=== PATIENT | male | born 1945 | race Caucasian/White ===

== ENCOUNTER 2016-11-29 12:54 | Emergency (ER) | payer MEDICARE ==
[2016-11-29 13:10] VITALS: BP 125/65
--- NOTE | 2016-11-29 13:22 | UC ---
Laceration HPI - HPI Summary HPI Summary: compalint of left ring finger lacertion was using a hand held planer and hit his finger cleaned his finger and wrapped in a pressure dressing unsure if he is UTD on tetanus hasn't taken any medication for pain - History Of Current Complaint Chief Complaint: UCLaceration Stated Complaint: LEFT RING FINGER LACERATION Time Seen by Provider: 11/29/16 13:05 Laceration Location: Finger - Allergies/Home Medications Allergies/Adverse Reactions: Allergies Allergy/AdvReac Type Severity Reaction Status Date / Time Nalbuphine [From Nubain] Allergy Severe See Comment Verified 11/29/16 13:10 PMH/Surg Hx/FS Hx/Imm Hx Previously Healthy: Yes Endocrine History: Dyslipidemia Cardiovascular History: Hypertension GI/ History: Gastroesophageal Reflux Psychological History: Depression - Surgical History Surgical History: Yes Surgery Procedure, Year, and Place: [place], hernia repair. bilateral knee replacement. cardiac stent placement - Family History Known Family History: Negative: Cardiac Disease, Hypertension, Diabetes - Social History Occupation: Retired Lives: With Family Alcohol Use: Weekly Alcohol Amount: 5 Substance Use Type: None Smoking Status (MU): Former Smoker Have You Smoked in the Last Year: No When Did the Patient Quit Smoking/Using Tobacco: 45 years ago - Immunization History Most Recent Tetanus Shot: unknown Review of Systems Constitutional: Negative Skin: Other - laceration Eyes: Negative ENT: Negative Respiratory: Negative Cardiovascular: Negative Gastrointestinal: Negative Genitourinary: Negative Motor: Negative Neurovascular: Negative Musculoskeletal: Negative Neurological: Negative Psychological: Negative All Other Systems Reviewed And Are Negative: Yes Physical Exam Triage Information Reviewed: Yes Appearance: No Pain Distress, Well-Nourished Vital Signs: Initial Vital Signs Temp 98.1 F 11/29/16 13:03 Pulse 60 11/29/16 13:03 Resp 18 11/29/16 13:03 BP 125/65 11/29/16 13:03 Vital Signs Reviewed: Yes Eyes: Positive: Conjunctiva Clear ENT: Positive: Pharynx normal, TMs normal Neck: Positive: No Lymphadenopathy Respiratory: Positive: Lungs clear, Normal breath sounds, No respiratory distress Cardiovascular: Positive: RRR, No Murmur Musculoskeletal: Positive: No Edema Neurological: Positive: Alert Psychological Exam: Normal Skin: Positive: Other - left ring finger - avulsion injury to pad of finger Laceration Repair - Laceration Repair 1 Description: Irregular Laceration Size After Repair: Length (cm) - 1, Width (mm) - 5, Depth (mm) - 2 Modified For Repair: No Cleansing Completed Via Routine Prep: Yes Irrigation With Pressure Irrigation Device: Yes Closure Material: SteriStrips Suture Type: Other - gel foam Laceration Course/Dx - Differential Dx - Laceration/Wound Differental Diagnoses: Avulsion, Laceration Provider Diagnoses: lefr ring finger avulsion injury Discharge - Discharge Plan Condition: Stable Disposition: HOME Patient Education Materials: Skin Avulsion (ED) Referrals: Escobar Biggs MD [Primary Care Provider] - Additional Instructions: keep your finger clean and dry keep gelfoam in place until it falls off, you can change the outer dressing daily and wear finger splint seek medical attention if your finger gets more painful, rede or swollen or you develop a fever Take acetaminophen or ibuprofen for fever or pain Please review your discharge instructions. If your symptoms do not improve please call your primary care provider or return to urgent care.
[2016-11-29] MEDS ORDERED: Gelfoam 100 COMPRESSED* SPONGE TOPICAL ONE (13:25)
[2016-11-29] MEDS ORDERED: Tetan/Diph/Pertus SYR(Tdap)* 0.5 ML SYR(BOOSTRIX) use SYR IM ONE (13:45)
[2016-11-29] MEDS ORDERED: Gelfoam 12-7 ADSORBABL SPONGE* 1 EA SPONGE ONE (13:49)
== END 2016-11-29 14:10 | disposition home or self-care (01) ==
LOC: UCCORT 12:54
DX: S61.215A Laceration without foreign body of left ring finger without damage to nail, initial encounter (principal); W27.8XXA Contact with other nonpowered hand tool, initial encounter; Y93.9 Activity, unspecified; Y92.9 Unspecified place or not applicable; Z23 Encounter for immunization; E78.5 Hyperlipidemia, unspecified; I10 Essential (primary) hypertension; K21.9 Gastro-esophageal reflux disease without esophagitis; F32.9 Major depressive disorder, single episode, unspecified; Z96.653 Presence of artificial knee joint, bilateral; Z95.5 Presence of coronary angioplasty implant and graft; Z87.891 Personal history of nicotine dependence
CPT/HCPCS: 90715; 99212; A9270-GY; G0463

== ENCOUNTER 2017-01-02 16:55 | Emergency (ER) | payer MEDICARE ==
[2017-01-02 18:14] VITALS: BP 122/67
--- NOTE | 2017-01-02 18:49 | UC ---
Skin Complaint HPI - HPI Summary HPI Summary: LEFT FOREARM SMALL NONTENDER NONPRURITIS CIRCULAR RASH. NO KNOWN TICK BITES. NO FEVERS. NO NEW EXPOSURES TO PLANTS, DETERGENTS, PETS, OR FOODS. - History of Current Complaint Chief Complaint: UCSkin Time Seen by Provider: 01/02/17 17:53 Stated Complaint: TICK BITE Hx Obtained From: Patient Onset/Duration: Sudden Onset, Lasting Days Skin Exposure Onset/Duration: Days Ago Onset Severity: Mild Current Severity: Mild Pain Intensity: 0 Pain Scale Used: 0-10 Numeric Location: Discrete - LEFT FOREARM Character: Redness Aggravating: Nothing Alleviating: Nothing Associated Signs & Symptoms: Positive: Rash. Negative: Nausea, Vomiting, Pallor , Shivering, Fever, Chills, Chest Pain, Hoarseness, Throat Tightening, Syncope, Drainage, Tenderness, Red Streaks, Joint Swelling Related History: Possible Reaction to: Food, Possible Reaction to: Animal, Possible Reaction to: Insect, Possible Reaction to: Environmental Exposure - Allergy/Home Medications Allergies/Adverse Reactions: Allergies Allergy/AdvReac Type Severity Reaction Status Date / Time Nalbuphine [From Nubain] Allergy Severe See Comment Verified 11/29/16 13:10 Review of Systems Constitutional: Negative Skin: Rash Eyes: Negative ENT: Negative Respiratory: Negative Cardiovascular: Negative Gastrointestinal: Negative Genitourinary: Negative Motor: Negative Neurovascular: Negative Musculoskeletal: Negative Neurological: Negative Psychological: Negative Is Patient Immunocompromised?: No All Other Systems Reviewed And Are Negative: Yes PMH/Surg Hx/FS Hx/Imm Hx Previously Healthy: Yes - Surgical History Surgical History: Yes Surgery Procedure, Year, and Place: Appy, hernia repair. bilateral knee replacement. cardiac stent placement - Family History Known Family History: Negative: Cardiac Disease, Hypertension, Diabetes - Social History Occupation: Retired Lives: With Family Alcohol Use: Weekly Alcohol Amount: 5 Substance Use Type: None Smoking Status (MU): Former Smoker Have You Smoked in the Last Year: No When Did the Patient Quit Smoking/Using Tobacco: 45 years ago - Immunization History Most Recent Influenza Vaccination: Not the 2016/2017 Season Most Recent Tetanus Shot: 11/29/16 Physical Exam Triage Information Reviewed: Yes Appearance: Well-Appearing, No Pain Distress, Well-Nourished Vital Signs: Initial Vital Signs Temp 98.1 F 01/02/17 18:08 Pulse 60 01/02/17 18:08 Resp 16 01/02/17 18:08 BP 122/67 01/02/17 18:08 Pulse Ox 95 01/02/17 18:08 Vital Signs Reviewed: Yes Eye Exam: Normal ENT Exam: Normal ENT: Positive: Normal ENT inspection, Hearing grossly normal, TMs normal Dental Exam: Normal Neck exam: Normal Neck: Positive: Supple, Nontender Respiratory Exam: Normal Respiratory: Positive: Chest non-tender, Lungs clear, Normal breath sounds, No respiratory distress, No accessory muscle use Cardiovascular Exam: Normal Cardiovascular: Positive: RRR, No Murmur Abdominal Exam: Normal Abdomen Description: Positive: Nontender Musculoskeletal Exam: Normal Musculoskeletal: Positive: Strength Intact Neurological Exam: Normal Psychological Exam: Normal Skin: Positive: rashes Course/Dx - Differential Diagnoses - Skin Complaint Differential Diagnoses: Cellulitis, Contact Dermatitis, Drug Rash, MRSA, Poison Micki, Poison Truchas, Tick Born Illness, Tinea - Diagnoses Provider Diagnoses: TINEA CORPORIS Discharge - Discharge Plan Condition: Stable Disposition: HOME Prescriptions: DOXYcycline CAP(*) [DOXYcycline 100MG CAP(*)] 100 mg PO ONCE #2 cap Ketoconazole 2 % CREAM (NF) [Nizoral 2% CREAM (NF)] 1 applic TOPICAL TID #1 tube Patient Education Materials: Tinea Corporis (ED) Referrals: Escobar Biggs MD [Primary Care Provider] - Images Front/Back of Body, Lg ([place]): 1 - SMALL CIRCULAR MACULAR 0.5CM X0.5CM LESION
== END 2017-01-02 18:41 | disposition home or self-care (01) ==
LOC: UCCORT 16:55
DX: B35.4 Tinea corporis (principal); Z87.891 Personal history of nicotine dependence
CPT/HCPCS: 99212; G0463

== ENCOUNTER → 2018-04-21 10:15 | Day surgery (SDC) | payer MEDICARE ==
[~2018-04-21 10:15] MED LIST: Buffered Lidocaine 0.9% SYRIN* 5 ML/SYR SYRINGE INTRADERM ONE; Bupivacaine 0.25% SDV PF* 10 ML VIAL INJ ONE; Dexamethasone IV* 4 MG/ML 1 ML (4 MG) ONE; Famotidine IV* 10 MG/ML 2 ML (20 mg) IV ONE; Famotidine IV* 10 MG/ML 2 ML (20 mg) ONE; Lactated Ringers 1000 ML Bag* 1,000 ML IV SCH; Lidocaine 2% PF * 5 ML VIAL ONE; Midazolam* 1 MG/ML 5 ML VIAL (5 MG) ONE; Ondansetron INJ* 2 MG/ML VIAL ONE; Propofol* 10 MG/ML 20 ML BTL ONE; fentaNYL* 50 MCG/ML 2 ML VIAL (100 MCG VIAL) ONE
[2018-04-21 14:58] VITALS: BP 133/84
--- NOTE | 2018-04-21 23:58 | OP ---
DATE OF OPERATION: 04/21/18 - [facility] DATE OF : 47 SURGEON: Jayson Roberts MD PRE-OP DIAGNOSIS: Gastric cancer. POST-OP DIAGNOSIS: Gastric cancer. OPERATIVE PROCEDURE: Placement of right subclavian approach PowerPort. INDICATIONS: Requiring central venous access for chemotherapy. Risks of surgery included but not limited to bleeding, infection, pneumothorax, injury to the heart, DVT, all explained to the patient. He seemed to understand. He agreed to the procedure and all questions were answered. DESCRIPTION OF PROCEDURE: The patient was taken to the operating room, placed supine, preoperative antibiotics had been given. Time-out was performed, correct patient and correct procedure. The chest was prepped and draped in sterile fashion. Sedation was given by the anesthesiologist. He was placed in a Trendelenburg position. The left subclavian space was not used due to pacemaker. The right chest had been prepped and draped in a sterile fashion. Skin was anesthetized with 0.25% Marcaine plain. The needle was placed in the subclavian vein and the wire was passed through the needle using Seldinger technique. The needle was removed. The tract was dilated and a split sheath was passed over the wire, the wire was removed. The PowerPort catheter was passed through the split sheath and the spit sheath was removed. Pocket was made below this entry site and the catheter was tunneled under the skin to this pocket. The catheter was connected to a PowerPort after fluoroscopy showed catheter in good position. Fluoroscopy had been used to shield the wire in good position as well. Port was checked by aspirating blood and then flushing with heparinized saline. The pocket was closed with a running two-layer Monocryl suture. Glue was applied to the skin. He tolerated the procedure well. [id number]/CPS #: [id number] MTDD
== END | disposition home or self-care (01) ==
LOC: OR 10:15
PROVIDERS: ATTEND Surgery
DX: C16.9 Malignant neoplasm of stomach, unspecified (principal); I10 Essential (primary) hypertension; Z95.0 Presence of cardiac pacemaker; G47.33 Obstructive sleep apnea (adult) (pediatric); K21.9 Gastro-esophageal reflux disease without esophagitis; M19.90 Unspecified osteoarthritis, unspecified site; D64.9 Anemia, unspecified; Z95.5 Presence of coronary angioplasty implant and graft; I25.10 Atherosclerotic heart disease of native coronary artery without angina pectoris; I25.2 Old myocardial infarction
CPT/HCPCS: 71045; 76000; C1788; J1100; J1642; J2250; J2405; J2704; J3010; J3490

== ENCOUNTER → 2018-08-15 11:55 | Emergency (ER) | payer MEDICARE ==
--- NOTE | 2018-08-15 14:33 | ED ---
Abdominal Pain/Male - HPI Summary HPI Summary: Pt is a 72 y/o M presenting to the ED with a chief complaint of abd pain onset about 1wk ago in the periumbilical area. He c/o fatigue, and states that the abd pain is usually somewhat alleviated with bowel movements, but nothing makes it worse. He has hx of esophageal CA that he has been in treatment for, and takes medical marijuana for. The pt states he took an Oxycodone originally but it made him nauseous, so he has mostly been taking Tylenol ES. He was advised by Dr. Roach to come here today. - History of Current Complaint Chief Complaint: EDAbdPain Stated Complaint: STOMACH PAIN/ON CHEMO PER PT Time Seen by Provider: 08/15/18 13:34 Hx Obtained From: Patient, Family/Literature Teacher - Onset/Duration: Sudden Onset, Lasting Weeks, Still Present Timing: Constant, Lasting Weeks Severity Initially: Moderate Severity Currently: Mild Pain Intensity: 2 Pain Scale Used: 0-10 Numeric Location: Umbilical Radiates: No Character: Cramping Aggravating Factor(s): Nothing Alleviating Factor(s): Bowel Movement Associated Signs And Symptoms: Positive: Other - fatigue - Allergies/Home Medications Allergies/Adverse Reactions: Allergies Allergy/AdvReac Type Severity Reaction Status Date / Time nalbuphine [From Nubain] Allergy Severe See Comment Verified 08/15/18 12:06 PACEMAKER AdvReac See Comment Uncoded 07/02/18 12:05 Home Medications: Home Medications Aspirin EC TAB* [Ecotrin EC Low Dose 81 MG*] 81 mg PO DAILY 08/15/18 [History Confirmed 08/15/18] Fluconazole [Fluconazole 200 mg tab] 200 mg PO SEE INSTRUCTIONS 08/15/18 [ History Confirmed 08/15/18] Magnesium CITRATE* [Citrate of Magnesia*] 8 ml PO ONCE PRN 08/15/18 [History Confirmed 08/15/18] Nystatin SUSPENSION* 5 ml PO TID 08/15/18 [History Confirmed 08/15/18] Ondansetron TAB* [Zofran 4 MG Tab*] 4 mg PO TID PRN 08/15/18 [History Confirmed 08/15/18] Prochlorperazine TAB* [Compazine Tab*] 10 mg PO QID PRN 08/15/18 [History Confirmed 08/15/18] Sildenafil (NF) [Viagra (NF)] 50 mg PO DAILY PRN 08/15/18 [History Confirmed ] Sucralfate SUSP (NF) [Carafate SUSP (NF)] 10 ml PO QID 08/15/18 [History Confirmed 08/15/18] Ubidecarenone [Co Q10] 200 mg PO BEDTIME 08/15/18 [History Confirmed 08/15/18] PMH/Surg Hx/FS Hx/Imm Hx Previously Healthy: No Endocrine/Hematology History: Denies: Hx Diabetes Cardiovascular History: Reports: Hx Hypertension - CONTROLLED WITH MEDS, Hx Pacemaker/ICD - 2008 replaced 2017 Denies: Other Cardiovascular Problems/Disorders Respiratory History: Reports: Hx Sleep Apnea Denies: Hx Asthma, Hx Chronic Obstructive Pulmonary Disease (COPD) GI History: Reports: Hx Gastroesophageal Reflux Disease, Hx Irritable Bowel, Hx Ulcer - GASTRIC IN THE PAST History: Denies: Hx Renal Disease Musculoskeletal History: Reports: Hx Arthritis - GENERALZIED Sensory History: Reports: Hx Cataracts, Hx Contacts or Glasses - GLASSES Denies: Hx Hearing Aid Opthamlomology History: Reports: Hx Cataracts, Hx Contacts or Glasses - GLASSES - Cancer History Cancer Type, Location and Year: metastatic stomach ca - Surgical History Surgery Procedure, Year, and Place: Appendectomy, Left inguinal hernia repair. bilateral knee replacement. cardiac stent placement. PACEMAKER Hx Anesthesia Reactions: No Infectious Disease History: No Infectious Disease History: Denies: Traveled Outside the [place] in Last 30 Days - Family History Known Family History: Negative: Cardiac Disease, Hypertension, Diabetes - Social History Alcohol Use: Weekly Alcohol Amount: 5 Hx Substance Use: Yes Substance Use Type: Reports: Marijuana, Prescribed Hx Tobacco Use: No Smoking Status (MU): Former Smoker Have You Smoked in the Last Year: No Review of Systems Positive: Fatigue Positive: Abdominal Pain All Other Systems Reviewed And Are Negative: Yes Physical Exam - Summary Physical Exam Summary: Appearance: The patient is well-nourished in no acute distress and in no acute pain. Skin: The skin is warm and dry and skin color reflects adequate perfusion. HEENT: The head is normocephalic and atraumatic. The pupils are equal and reactive. The conjunctivae are clear and without drainage. Nares are patent and without drainage. Mouth reveals moist mucous membranes and the throat is without erythema and exudate. The external ears are intact. The ear canals are patent and without drainage. The tympanic membranes are intact. Neck: The neck is supple with full range of motion and non-tender. There are no carotid bruits. There is no neck vein distension. Respiratory: Chest is non-tender. Lungs are clear to auscultation and breath sounds are symmetrical and equal. Cardiovascular: Heart is regular rate and rhythm. There is no murmur or rub auscultated. There is no peripheral edema and pulses are symmetrical and equal. Abdomen: The abdomen is soft and non-tender. There are normal bowel sounds heard in all four quadrants and there is no organomegaly palpated. Musculoskeletal: There is no back tenderness noted. Extremities are non-tender with full range of motion. There is good capillary refill. There is no peripheral edema or calf tenderness elicited. Neurological: Patient is alert and oriented to person, place and time. The patient has symmetrical motor strength in all four extremities. Cranial nerves are grossly intact. Deep tendon reflexes are symmetrical and equal in all four extremities. Psychiatric: The patient has an appropriate affect and does not exhibit any anxiety or depression. Triage Information Reviewed: Yes Vital Signs On Initial Exam: Initial Vitals Temp Pulse Resp BP Pulse Ox 97.6 F 59 18 118/74 96 08/15/18 12:01 08/15/18 12:01 08/15/18 12:01 08/15/18 12:01 08/15/18 12:01 Vital Signs Reviewed: Yes Diagnostics - Vital Signs Vital Signs Temp Pulse Resp BP Pulse Ox 08/15/18 13:33 60 17 105/80 94 08/15/18 13:32 60 21 94 08/15/18 12:01 97.6 F 59 18 118/74 96 - Laboratory Result Diagrams: 08/15/18 14:34 08/15/18 14:37 Lab Statement: Any lab studies that have been ordered have been reviewed, and results considered in the medical decision making process. Abdominal Pain Male Course/Dx - Course Course Of Treatment: Mr. Hicks has been having a lower abdominal pain for about a week. He tried taking oxycodone but it made him nauseated. He's had no vomiting and can't really distinguish any exacerbating or relieving factors or associated symptoms. His gave him one of her Percocet this morning and that seems to have helped and did not make him nauseated. He was mildly if at all tender in his abdomen with stable vital signs and a nontoxic appearance. Labs were obtained and were remarkable only for mildly elevated CRP. I spoke with Dr. Paige with the recommendation and I'll treat him with some Percocet and get him follow-up with Dr. Roach. - Diagnoses Provider Diagnoses: Abdominal pain Discharge - Sign-Out/Discharge Documenting (check all that apply): Patient Departure Patient Received Moderate/Deep Sedation with Procedure: No - Discharge Plan Condition: Stable Disposition: HOME Prescriptions: oxyCODONE/Acetamin 5/325 MG* [Percocet 5/325 TAB*] 1 tab PO Q6H PRN #20 tab MDD 4 PRN Reason: Pain Referrals: Escobar Biggs MD [Primary Care Provider] - Additional Instructions: Please follow up with Dr. Roach within the next 2-3 days. Return to the ED with any new or worsening symptoms. - Billing Disposition and Condition Condition: STABLE Disposition: Home - Attestation Statements Document Initiated by Scribe: Yes Documenting Scribe: Shae Dunn Provider For Whom Charisseibe is Documenting (Include Credential): Dennis Reinoso MD. Scribe Attestation: I, Shae Dunn, scribed for Dennis Reinoso MD. on 08/15/18 at 1708. Scribe Documentation Reviewed: Yes Provider Attestation: The documentation as recorded by the scribe, Shae Dunn accurately reflects the service I personally performed and the decisions made by me, Dennis Reinoso MD. Status of Scribe Document: Viewed Consult Consult: [id number] - I spoke with Dr. Paige to touch base about the pt's current plan of disposition, and he agreed.
[2018-08-15 14:52] LABS: ABS Basophils 0 10^3/ul (0-0.2); ABS Eosinophils 0 10^3/ul (0-0.6); ABS Lymphocytes 1.3 10^3/ul (1.0-4.8); ABS Monocytes 0.3 10^3/ul (0-0.8); ABS Neutrophils 3.3 10^3/ul (1.5-7.7); ABS Nucleated RBC 0 10^3/ul; Eosinophil % 0.7 %; Hematocrit 33 % (36-46); Lymphocyte % 25.6 %; Mean Corpuscular HGB Conc 33 g/dL (31-36); Mean Corpuscular Hemoglobin 33 pg (27-31); Mean Corpuscular Volume 98 fL (80-94); Nucleated Red Blood Cells % 0.1; Platelet Count 239 10^3/uL (150-450); Red Blood Count 3.36 10^6 /uL (4.18-5.48); Red Cell Distribution Width 21 % (10.5-15)
[2018-08-15 15:05] LABS: Albumin 3.6 g/dL (3.2-5.2); C Reactive Protein 161.17 mg/L (<8.01); Calcium 9.4 mg/dL (8.6-10.3); EGFR African American 98.1 (>60); EGFR Non-African American 81.1 (>60); Globulin 3.5 g/dL (2-4); Potassium 4.9 mmol/L (3.5-5.0); Total Bilirubin 0.6 mg/dL (0.2-1.0); Total Protein 7.1 g/dL (6.4-8.9)
[2018-08-15 15:41] VITALS: BP 125/78
== END | disposition home or self-care (01) ==
LOC: ED 11:55
DX: R10.9 Unspecified abdominal pain (principal); I10 Essential (primary) hypertension; K21.9 Gastro-esophageal reflux disease without esophagitis; K58.9 Irritable bowel syndrome, unspecified; F12.90 Cannabis use, unspecified, uncomplicated; Z79.82 Long term (current) use of aspirin; Z79.899 Other long term (current) drug therapy; Z95.810 Presence of automatic (implantable) cardiac defibrillator; Z85.028 Personal history of other malignant neoplasm of stomach; Z87.891 Personal history of nicotine dependence
CPT/HCPCS: 36415; 80053; 83605; 83690; 85025; 86140; 99283

== ENCOUNTER 2019-05-08 06:50 | Inpatient (IN) | payer MEDICARE ==
[2019-05-08] MEDS ORDERED: Lactated Ringers 1000 ML Bag* 1,000 ML IV SCH (08:00)
--- NOTE | 2019-05-08 08:01 | ED ---
Complex/Multi-Sys Presentation - HPI Summary HPI Summary: 73-year-old male presents with weakness for the past couple weeks. He states every time he has a chemo treatment he feels weaker. He has been having abdominal pain for the past couple week. states that he has a partial blockage and has had no appetite. Has been having diarrhea. last BM was Saturday. Has not been on antibiotics recently. He denies any chest pain or shortness breath. He states that he feels more dizzy when he stands up. No headache. Family states that today he was walking and he almost fell over. Denies hitting his head. No LOC. He states that he see more weak than normal but now is back to his baseline. - History Of Current Complaint Chief Complaint: EDFall Time Seen by Provider: 05/08/19 07:02 - Allergies/Home Medications Allergies/Adverse Reactions: Allergies Allergy/AdvReac Type Severity Reaction Status Date / Time nalbuphine [From Nubain] Allergy Severe See Comment Verified 11/20/18 09:11 PACEMAKER AdvReac See Comment Uncoded 07/02/18 12:05 Home Medications: Home Medications Acetaminophen TAB* [Tylenol TAB*] 650 mg PO Q4H PRN 05/08/19 [History Confirmed 05/08/19] LORazepam TAB(*) [Ativan 0.5 MG TAB (*)] 0.5 mg PO BEDTIME PRN 05/08/19 [ History Confirmed 05/08/19] Magic Mouth Was-NANI/MAAL/LIDO* 5 ml SWISH SPIT QID 05/08/19 [History Confirmed 05/08/19] Nitroglycerin TAB 0.4 MG* 0.4 mg SL Q5M PRN 05/08/19 [History Confirmed 05/08/19 ] Pantoprazole TAB * [Protonix TAB*] 40 mg PO BID 05/08/19 [History Confirmed ] Prochlorperazine 10 mg TAB [Compazine 10 mg TAB] 10 mg PO TID PRN 05/08/19 [ History Confirmed 05/08/19] Ubidecarenone [Coq-10 Tr] 200 mg PO DAILY 05/08/19 [History Confirmed 05/08/19] PMH/Surg Hx/FS Hx/Imm Hx Endocrine/Hematology History: Denies: Hx Diabetes Cardiovascular History: Reports: Hx Hypertension - -no longer on medication for HTN, states now has Hypotension as of 02/2019, Hx Pacemaker/ICD - 2008 replaced 2017 Denies: Other Cardiovascular Problems/Disorders Respiratory History: Reports: Hx Sleep Apnea Denies: Hx Asthma, Hx Chronic Obstructive Pulmonary Disease (COPD) GI History: Reports: Hx Gastroesophageal Reflux Disease, Hx Irritable Bowel, Hx Ulcer - GASTRIC IN THE PAST History: Denies: Hx Dialysis, Hx Renal Disease Musculoskeletal History: Reports: Hx Arthritis - GENERALZIED Sensory History: Reports: Hx Cataracts, Hx Contacts or Glasses - GLASSES Denies: Hx Hearing Aid Opthamlomology History: Reports: Hx Cataracts, Hx Contacts or Glasses - GLASSES - Cancer History Cancer Type, Location and Year: metastatic stomach ca - Surgical History Surgery Procedure, Year, and Place: Appendectomy, Left inguinal hernia repair. bilateral knee replacement. cardiac stent placement. PACEMAKER, port Hx Anesthesia Reactions: No Infectious Disease History: No Infectious Disease History: Denies: Traveled Outside the [place] in Last 30 Days - Family History Known Family History: Negative: Cardiac Disease, Hypertension, Diabetes - Social History Alcohol Use: Weekly Alcohol Amount: 5 Hx Substance Use: Yes Substance Use Type: Reports: Marijuana, Prescribed Hx Tobacco Use: No Smoking Status (MU): Former Smoker Have You Smoked in the Last Year: No Review of Systems Negative: Fever, Chills Negative: Chest Pain Negative: Shortness Of Breath, Cough Positive: Nausea Neurological: Other - dizziness Positive: Weakness All Other Systems Reviewed And Are Negative: Yes Physical Exam Triage Information Reviewed: Yes Vital Signs On Initial Exam: Initial Vitals Temp Pulse Resp BP Pulse Ox 97 F 87 16 129/84 95 05/08/19 06:58 05/08/19 06:58 05/08/19 06:58 05/08/19 06:58 05/08/19 06:58 Vital Signs Reviewed: Yes Appearance: Positive: Well-Appearing Skin: Positive: Warm, Dry Head/Face: Positive: Normal Head/Face Inspection Eyes: Positive: Normal, EOMI, CHRIS, Conjunctiva Clear ENT: Positive: Normal ENT inspection, Pharynx normal, TMs normal Respiratory/Lung Sounds: Positive: Clear to Auscultation, Breath Sounds Present Cardiovascular: Positive: Normal, RRR Abdomen Description: Positive: Nontender, Soft Bowel Sounds: Positive: Present Musculoskeletal: Positive: Normal Neurological: Positive: Normal Psychiatric: Positive: Normal Procedures - Sedation Patient Received Moderate/Deep Sedation with Procedure: No Diagnostics - Vital Signs Vital Signs Temp Pulse Resp BP Pulse Ox 05/08/19 06:58 97 F 87 16 129/84 95 - Laboratory Result Diagrams: 05/08/19 07:57 05/08/19 07:56 Lab Statement: Any lab studies that have been ordered have been reviewed, and results considered in the medical decision making process. - EKG No standard instances Cardiac Rate: NL EKG Rhythm: Sinus Rhythm EKG Comparison: No Significant Change Summary of EKG Findings: sinus rhythm, flatten t waves Re-Evaluation - Re-Evaluation First Eval Comment: performed rectal due to anemia. no gross blood Second Eval Re-Evaluation Time: 10:02 Comment: feeling better but still dizzy when stands up Complex Multi-Symp Course/Dx Course Of Treatment: 73-year-old male presents with weakness for the past couple weeks. He states every time he has a chemo treatment he feels weaker. He has been having abdominal pain for the past couple week. states that he has a partial blockage and has had no appetite. Has been having diarrhea. Has not been on antibiotics recently. He denies any chest pain or shortness breath. He states that he feels more dizzy when he stands up. No headache. Family states that today he was walking and he almost fell over. Denies hitting his head. No LOC. He states that he see more weak than normal but now is back to his baseline. On exam has normal neuro exam. Physical exam without abnormality. wbc normal. hemoglobin 9.9. ekg sinus rhythm. troponin .01. ct yesterday shows new masses. patient was orthostatic after a liter of fluid. discussed with dr voss who agrees to admit. - Diagnoses Differential Diagnoses/HQI/PQRI: Metabolic Abnormality, Sepsis, Urinary Tract Infection Provider Diagnoses: Weakness, Orthostatic hypertension Discharge ED - Sign-Out/Discharge Documenting (check all that apply): Patient Departure - Discharge Plan Condition: Stable Disposition: ADMITTED TO [facility] Referrals: Escobar Biggs MD [Primary Care Provider] - - Billing Disposition and Condition Condition: STABLE Disposition: Admitted to [facility]
[2019-05-08 08:08] LABS: ABS Eosinophils 0.1 10^3/ul (0-0.6); ABS Lymphocytes 0.6 10^3/ul (1.0-4.8); ABS Monocytes 1.1 10^3/ul (0-0.8); ABS Neutrophils 2.3 10^3/ul (1.5-7.7); Hematocrit 29 % (42-52); Hemoglobin 9.9 g/dL (14.0-18.0); Lymphocyte % 15.2 %; Mean Corpuscular HGB Conc 35 g/dL (31-36); Mean Corpuscular Hemoglobin 35 pg (27-31); Mean Corpuscular Volume 100 fL (80-94); Mean Platelet Volume 6.8 fL (7.4-10.4); Nucleated Red Blood Cells % 0.1; Platelet Count 225 10^3/uL (150-450); Red Blood Count 2.88 10^6 /uL (4.18-5.48); Red Cell Distribution Width 18 % (10-15); White Blood Count 4.1 10^3/uL (3.5-10.8)
[2019-05-08 08:24] LABS: ALT 8 U/L (7-52); AST 12 U/L (13-39); Albumin 3.2 g/dL (3.2-5.2); Albumin/Globulin Ratio 1.4 (1-3); Alkaline Phosphatase 75 U/L (34-104); Anion Gap 5 mmol/L (2-11); BUN/Creatinine Ratio 20.3 (8-20); Blood Urea Nitrogen 13 mg/dL (6-24); C Reactive Protein 197.88 mg/L (<8.01); CO2 Carbon Dioxide 27 mmol/L (22-32); Calcium 8.8 mg/dL (8.6-10.3); Chloride 102 mmol/L (101-111); EGFR African American 148.7 (>60); EGFR Non-African American 122.9 (>60); Globulin 2.3 g/dL (2-4); Glucose 85 mg/dL (70-100); Sodium 134 mmol/L (135-145); Total Protein 5.5 g/dL (6.4-8.9)
[2019-05-08 08:26] LABS: Troponin I 0.01 ng/mL (<0.03)
[2019-05-08 08:51] LABS: TSH (Thyroid Stimulating Horm) 1.96 mcIU/mL (0.34-5.60)
[2019-05-08] MEDS ORDERED: NS 0.9% 1000 ML** 1,000 ML IV ONE (09:49)
--- NOTE | 2019-05-08 11:07 | ED ---
Progress - Progress Note Progress Note: ATTENDING SUPERVISORY NOTE: This is a 18-year-old male, patient of the oncology service, who presents for progressive weakness over the past couple of days. He reports poor oral intake which is secondary to a partial small bowel obstruction. He reports no abdominal pain, has not had a bowel movement today. No abdominal tenderness or distention. He is orthostatic in the emergency department. Had a CT yesterday. Elevated CRP, at this point unclear etiology. Workup continues, plan for admission oncology. Re-Evaluation - Re-Evaluation First Eval Comment: performed rectal due to anemia. no gross blood Second Eval Re-Evaluation Time: 10:02 Comment: feeling better but still dizzy when stands up Course/Dx - Course Course Of Treatment: 73-year-old male presents with weakness for the past couple weeks. He states every time he has a chemo treatment he feels weaker. He has been having abdominal pain for the past couple week. states that he has a partial blockage and has had no appetite. Has been having diarrhea. Has not been on antibiotics recently. He denies any chest pain or shortness breath. He states that he feels more dizzy when he stands up. No headache. Family states that today he was walking and he almost fell over. Denies hitting his head. No LOC. He states that he see more weak than normal but now is back to his baseline. On exam has normal neuro exam. Physical exam without abnormality. wbc normal. hemoglobin 9.9. ekg sinus rhythm. troponin .01. ct yesterday shows new masses. patient was orthostatic after a liter of fluid. discussed with dr voss who agrees to admit. - Diagnoses Provider Diagnoses: Weakness, Orthostatic hypertension Discharge ED - Sign-Out/Discharge Documenting (check all that apply): Patient Departure - Discharge Plan Condition: Stable Disposition: ADMITTED TO [facility] Referrals: Escobar Biggs MD [Primary Care Provider] - - Billing Disposition and Condition Condition: STABLE Disposition: Admitted to [facility]
[2019-05-08 11:56] LABS: Urine Appearance Cloudy; Urine Bilirubin Negative (Negative); Urine Blood Negative (Negative); Urine Color Amber; Urine Glucose Negative (Negative); Urine Ketones Negative (Negative); Urine Nitrite Negative (Negative); Urine Protein 1+(30 mg/dL) (Negative); Urine Specific Gravity 1.024 (1.010-1.030); Urine Urobilinogen Negative (Negative)
[2019-05-08 11:57] LABS: Urine Bacteria Absent (Absent); Urine Red Blood Cell 2+(6-10/hpf) (Absent); Urine White Blood Cell 1+(6-10/hpf) (Absent)
[2019-05-08] MEDS ORDERED: Magic Mouth Was-BEN/MAAL/LIDO SWISH SPIT PRN (12:01)
[2019-05-08] MEDS ORDERED: Magnesium CITRATE* 300 ML BTL PO ONE (12:03)
[2019-05-08] MEDS ORDERED: Lactated Ringers 1000 ML Bag* 1,000 ML IV ONE (13:00)
[2019-05-08] MEDS: NS 0.9% 1000 ML** 1,000 ML IV SCH (13:47)
[2019-05-08] MEDS: Fludrocortisone Acetate TAB* 0.1 MG PO SCH (13:48)
[2019-05-08] MEDS: Senna TAB 8.6 mg* TAB PO SCH ×2 (13:48→20:24)
[2019-05-08] MEDS: Enoxaparin(*) 40 MG/0.4 ML SYR SUBCUT SCH (13:48)
[2019-05-08] MEDS: Acetaminophen TAB* 325 MG PO PRN (15:43)
[2019-05-08] MEDS: ALPRAZolam TAB* 0.5 MG PO PRN (17:03)
[2019-05-08 17:50] LABS: Total Iron Binding Capacity 183 mcg/dL (250-450); Transferrin 131 mg/dL (203-362)
[2019-05-08 17:51] LABS: % Iron Saturation 11 % (15-55); Iron < 20 ug/dL (50-212)
--- NOTE | 2019-05-08 19:36 | HP ---
CC: Dr. Escobar Biggs; Dr. Yasmin Link * ADMISSION HISTORY AND PHYSICAL: DATE OF ADMISSION: 05/08/19 PRIMARY CARE PROVIDER: Dr. Escobar Biggs. PRIMARY ONCOLOGIST: Dr. Yasmin Link. ATTENDING PHYSICIAN: Dr. Chepe Gee.* (DICTATED BY DEVANG FARMER) ADMITTING PROVIDER: DEVANG Farmer. CHIEF COMPLAINT: Weakness and near syncope. HISTORY OF PRESENT ILLNESS: This is a 73-year-old gentleman with metastatic gastric adenocarcinoma, most recently treated with third line irinotecan chemotherapy, who presented to the emergency department after a near syncopal episode overnight. The patient had been seen in the oncology clinic earlier this week with severe constipation and abdominal discomfort following several days of high doses of Imodium for severe diarrhea. He was given a prescription for Reglan and recommended a clear liquid diet at that time. The patient reports that he has been experiencing intermittent dizziness and overnight he got up to use the rest room and his attempted to help him, but she felt that he was in a "zombie-like state" and was extremely weak and he nearly fell. Her daughter subsequently came to the house to try to help and the two of them were unable to assist him to the bathroom and subsequently called EMS. The patient denies any recent fevers. No nausea or vomiting. He has not had a bowel movement as of yet. Denies little to no abdominal pain at this time. No cough or shortness of breath, but has been experiencing increasing weakness over the last several months. PAST MEDICAL HISTORY: 1. Metastatic gastric adenocarcinoma. 2. Depression and anxiety. 3. Orthostatic hypotension. 4. Hyperlipidemia. PAST SURGICAL HISTORY: 1. Arthroscopic knee surgery. 2. Left total knee replacement. 3. Pacemaker placement. 4. Right total knee replacement. HOME MEDICATIONS: 1. Acetaminophen 650 mg p.o. q.4 hours as needed for pain or fever. 2. Alprazolam 0.25 mg p.o. twice daily as needed for anxiety. 3. Aspirin 81 mg p.o. daily. 4. Atorvastatin 40 mg p.o. at bedtime. 5. Duloxetine 20 mg p.o. daily. 6. Fludrocortisone 0.1 mg p.o. daily. 7. Lorazepam 0.5 mg p.o. at bedtime. 8. Magic mouthwash as needed. 9. Nitroglycerin 0.4 mg sublingual q.5 minutes as needed for chest pain. 10. Zofran 4 mg p.o. t.i.d. as needed for nausea and vomiting. 11. Pantoprazole 40 mg p.o. twice daily. 12. Compazine 10 mg p.o. 3 times daily as needed for nausea and vomiting. 13. Carafate 1 g p.o. 3 times daily. 14. Co-Q10 200 mg p.o. daily. FAMILY HISTORY: The patient's sister with breast cancer, diagnosed at 42 and another diagnosed at 44, and a paternal grandfather with stomach cancer. SOCIAL HISTORY: The patient is . Lives at home with his . Has a remote smoking history, quit over 50 years ago, and historically has had some occasional alcohol intake, but nothing recently. PHYSICAL EXAMINATION GENERAL: This is a 73-year-old gentleman who appears both acute and chronically ill. Generally thin and somewhat frail appearing, but no acute distress, accompanied by his and daughter. INITIAL VITALS: Temperature 97 degrees Fahrenheit, pulse 87 beats per minute, respiratory rate 16, oxygen saturation 95% on room air, blood pressure 129/84 mmHg. HEENT: Head is normocephalic, atraumatic. Mucous membranes are pink and moist. RESPIRATORY: Lungs are clear to auscultation without wheezes, crackles, or rhonchi. CARDIOVASCULAR: Heart has a regular rate and rhythm without murmurs, rubs, or gallops. ABDOMEN: Soft and nontender to palpation. EXTREMITIES: No edema. PSYCH: The patient is alert and appropriately oriented. SKIN: No rash. DIAGNOSTIC STUDIES/LAB DATA: CBC shows a white blood cell count of 4100, hemoglobin of 9.9 g/dL, and a platelet count of 225,000. Comprehensive metabolic panel shows sodium of 134 mmol/L, potassium of 4.0, BUN of 13, creatinine of 0.64. Transaminases and total bilirubin are within normal limits. CRP elevated at 197. TSH within normal limits at 1.96. Urinalysis 1+ white blood cells, 2+ rbc's, and 1+ protein. Stool is negative for occult blood. Imaging: EKG shows a sinus rhythm, no acute ischemic changes appreciated. ASSESSMENT AND PLAN: This is a 73-year-old gentleman with metastatic gastric cancer, on third line chemotherapy, who presents with [id number] weakness and a near syncopal episode overnight. Labs are generally unremarkable with the exception of small decline in his hemoglobin, which has been notable over the last 6 weeks or so. His stool is heme negative on check from earlier today. I reviewed his recent restaging CT in detail with the patient and his at bedside, which unfortunately shows rather significant progression of his known metastatic disease. Discussed this at length. His acute episode may be related to a recent use of Reglan due to his constipation and it would be appropriate for the patient to come into the hospital for a period of observation for additional evaluation and symptom management. 1. Weakness and near syncope - assume that this is most likely medication related. We will hold his Reglan use, alternative stimulant laxatives to resolve his constipation. We will provide him with hydration support and monitor labs accordingly. We will plan on the pacemaker interrogation to evaluate for dysrhythmias and place the patient on continuous telemetry monitoring. 2. Metastatic gastric adenocarcinoma - the patient is primarily treated by Dr. Yasmin Link. Restaging scans completed yesterday, show marked progression on third line chemotherapy. The patient and his have previously been interested in considering clinical trial at the time of progression and discussed today that his performance status likely excludes him from most clinical trials, but this may be an option for him in the future if his strength improves. I also suggested to his that she could be in contact by phone with some of the trial coordinators at [facility]. Discussed 4th line chemo including Lonsurf or discontinuing further treatment and pursuing fairly palliative options. No decisions were made today nor does this affect his acute management during this hospitalization. 3. Anemia - likely chemotherapy related. We will check iron studies as well as vitamin B12 and monitor closely, again heme occult negative on admission. 4. Orthostatic hypotension - continue Florinef. 5. Code status: The patient would like to remain full code at this time. 6. DVT prophylaxis with Lovenox subcu daily. 7. Disposition: The patient is being admitted to observation status with anticipated length of stay to be greater than 1 midnight. DEVANG FARMER [id number]/[facility] #: [id number] LJ
[2019-05-08] MEDS: Pantoprazole TAB * 40 MG TAB PO SCH (20:24)
[2019-05-08] MEDS: Atorvastatin* 40 MG TAB PO SCH (20:24)
[2019-05-08 22:23] LABS: Folate 17.54 ng/mL (>3.99)
[2019-05-09] MEDS: LORazepam TAB(*) 0.5 MG PO PRN ×2 (00:15→22:43)
[2019-05-09] MEDS: ALPRAZolam TAB* 0.5 MG PO PRN ×4 (00:16→22:42)
[2019-05-09] MEDS: NS 0.9% 1000 ML** 1,000 ML IV SCH ×2 (02:30→15:29)
[2019-05-09 07:58] LABS: ABS Eosinophils 0.1 10^3/ul (0-0.6); ABS Lymphocytes 0.7 10^3/ul (1.0-4.8); ABS Monocytes 0.9 10^3/ul (0-0.8); ABS Neutrophils 2.1 10^3/ul (1.5-7.7); Eosinophil % 2.8 %; Hematocrit 26 % (42-52); Hemoglobin 9.1 g/dL (14.0-18.0); Lymphocyte % 18.8 %; Mean Corpuscular HGB Conc 35 g/dL (31-36); Mean Corpuscular Hemoglobin 35 pg (27-31); Mean Corpuscular Volume 99 fL (80-94); Mean Platelet Volume 6.6 fL (7.4-10.4); Platelet Count 233 10^3/uL (150-450); Red Blood Count 2.62 10^6 /uL (4.18-5.48); Red Cell Distribution Width 18 % (10-15); White Blood Count 3.8 10^3/uL (3.5-10.8)
[2019-05-09 08:14] LABS: Albumin 2.8 g/dL (3.2-5.2); Albumin/Globulin Ratio 1.2 (1-3); BUN/Creatinine Ratio 22.2 (8-20); Calcium 8.1 mg/dL (8.6-10.3); EGFR Non-African American 149.6 (>60); Globulin 2.4 g/dL (2-4); Potassium 3.7 mmol/L (3.5-5.0); Total Bilirubin 0.6 mg/dL (0.2-1.0); Total Protein 5.2 g/dL (6.4-8.9)
[2019-05-09] MEDS: Ondansetron TAB* 4 MG PO PRN ×3 (09:03→22:46)
[2019-05-09] MEDS: DULoxetine DR CAP* 20 MG CAP.DR PO SCH (09:03)
[2019-05-09] MEDS: Aspirin EC TAB* 81 MG TAB.EC PO SCH (09:03)
[2019-05-09] MEDS: Fludrocortisone Acetate TAB* 0.1 MG PO SCH (09:03)
[2019-05-09] MEDS: Senna TAB 8.6 mg* TAB PO SCH ×2 (09:04→21:04)
[2019-05-09] MEDS: Pantoprazole TAB * 40 MG TAB PO SCH ×2 (09:04→21:04)
[2019-05-09 10:19] LABS: Ferritin 475.3 ng/mL (24-336)
--- NOTE | 2019-05-09 10:43 | PN ---
Progress Note - Progress Note Date of Service: 05/09/19 SOAP: Subjective: [Urine retention noted following admission. He was straight cathed once, but on repeat PVR was ~500 ml and Hionjosa catheter placed. Pt reports he has been having some difficulty urinating for several days prior to admission. Typically has some nocturia, but no prior hesitancy or retention symptoms. Bowels have not moved, some gas and discomfort in the abdomen. No n/v. Feels very weak. ] Objective: [ Vital Signs Temp Pulse Resp BP Pulse Ox 98.8 F 85 16 114/71 94 05/09/19 07:15 05/09/19 07:15 05/09/19 09:03 05/09/19 07:15 05/09/19 07:15 Acetaminophen (Tylenol Tab*) 650 mg PO Q4H PRN PRN Reason: pain/fever Last Admin: 05/08/19 15:43 Dose: 650 mg Alprazolam (Xanax Tab*) 0.25 mg PO BID PRN PRN Reason: ANXIETY Last Admin: 05/09/19 09:03 Dose: 0.25 mg Aspirin (Aspirin Ec Tab*) 81 mg PO DAILY [facility] Last Admin: 05/09/19 09:03 Dose: 81 mg Atorvastatin Calcium (Lipitor*) 40 mg PO BEDTIME [facility] Last Admin: 05/08/19 20:24 Dose: 40 mg Bisacodyl (Dulcolax Supp*) 10 mg MI ONCE ONE Stop: 05/09/19 10:44 Duloxetine HCl (Cymbalta Cap*) 20 mg PO DAILY [facility] Last Admin: 05/09/19 09:03 Dose: 20 mg Enoxaparin Sodium (Lovenox(*)) 40 mg SUBCUT Q24H [facility] Last Admin: 05/08/19 13:48 Dose: 40 mg Fludrocortisone Acetate (Florinef Tab*) 0.1 mg PO DAILY [facility] Last Admin: 05/09/19 09:03 Dose: 0.1 mg Sodium Chloride (Ns 0.9% 1000 Ml) 1,000 mls @ 75 mls/hr IV PER RATE [facility] Last Admin: 05/09/19 02:30 Dose: 75 mls/hr Lorazepam (Ativan Tab(*)) 0.5 mg PO BEDTIME PRN PRN Reason: ANXIETY Last Admin: 05/09/19 00:15 Dose: 0.5 mg Multi-Ingredient Mouthwash/Gargle (Magic Mouth Was-Dong/Maal/Lido*) 5 ml SWISH SPIT QID PRN PRN Reason: mouth pain Ondansetron HCl (Zofran Tab*) 4 mg PO TID PRN PRN Reason: NAUSEA/VOMITING Last Admin: 05/09/19 09:03 Dose: 4 mg Pantoprazole Sodium (Protonix Tab*) 40 mg PO BID [facility] Last Admin: 05/09/19 09:04 Dose: 40 mg Prochlorperazine (Compazine 10 Mg Tab) 10 mg PO TID PRN PRN Reason: NAUSEA Senna (Senokot 8.6 Mg Tab*) 1 tab PO BID [facility] Last Admin: 05/09/19 09:04 Dose: 1 tab Laboratory Results - last 24 hr 05/08/19 05/08/19 05/09/19 07:56 11:15 07:47 WBC 3.8 RBC 2.62 L Hgb 9.1 L Hct 26 L MCV 99 H MCH 35 H MCHC 35 RDW 18 H Plt Count 233 MPV 6.6 L Neut % (Auto) 55.1 Lymph % (Auto) 18.8 [place] % (Auto) 22.7 Eos % (Auto) 2.8 Baso % (Auto) 0.6 Absolute Neuts (auto) 2.1 Absolute Lymphs (auto) 0.7 L Absolute Monos (auto) 0.9 H Absolute Eos (auto) 0.1 Absolute Basos (auto) 0.0 Absolute Nucleated RBC 0.0 Nucleated RBC % 0.0 Sodium 134 L Potassium 4.0 Chloride 102 Carbon Dioxide 27 Anion Gap 5 BUN 13 Creatinine 0.64 L Est GFR ( Amer) 148.7 Est GFR (Non-Af Amer) 122.9 BUN/Creatinine Ratio 20.3 H Glucose 85 Calcium 8.8 Magnesium 2.0 Iron < 20 L TIBC 183 L % Saturation 11 L Unsat Iron Binding < 168 Transferrin 131 L Ferritin Total Bilirubin 0.70 AST 12 L ALT 8 Alkaline Phosphatase 75 Troponin I 0.01 C-Reactive Protein 197.88 H Total Protein 5.5 L Albumin 3.2 Globulin 2.3 Albumin/Globulin Ratio 1.4 Vitamin B12 864 Folate 17.54 TSH 1.96 Urine Color Amy Urine Appearance Cloudy Urine pH 5.0 Ur Specific [place] 1.024 Urine Protein 1+(30 mg/dl) A Urine Ketones Negative Urine Blood Negative Urine Nitrate Negative Urine Bilirubin Negative Urine Urobilinogen Negative Ur Leukocyte Esterase Negative Urine WBC (Auto) 1+(6-10/hpf) A Urine RBC (Auto) 2+(6-10/hpf) A Urine Bacteria Absent Urine Glucose Negative 05/09/19 07:47 WBC RBC Hgb Hct MCV MCH MCHC RDW Plt Count MPV Neut % (Auto) Lymph % (Auto) [place] % (Auto) Eos % (Auto) Baso % (Auto) Absolute Neuts (auto) Absolute Lymphs (auto) Absolute Monos (auto) Absolute Eos (auto) Absolute Basos (auto) Absolute Nucleated RBC Nucleated RBC % Sodium 135 Potassium 3.7 Chloride 104 Carbon Dioxide 26 Anion Gap 5 BUN 12 Creatinine 0.54 L Est GFR ( Amer) 181.0 Est GFR (Non-Af Amer) 149.6 BUN/Creatinine Ratio 22.2 H Glucose 84 Calcium 8.1 L Magnesium Iron TIBC % Saturation Unsat Iron Binding Transferrin Ferritin 475.3 H Total Bilirubin 0.60 AST 10 L ALT 7 Alkaline Phosphatase 73 Troponin I C-Reactive Protein Total Protein 5.2 L Albumin 2.8 L Globulin 2.4 Albumin/Globulin Ratio 1.2 Vitamin B12 Folate TSH Urine Color Urine Appearance Urine pH Ur Specific [place] Urine Protein Urine Ketones Urine Blood Urine Nitrate Urine Bilirubin Urine Urobilinogen Ur Leukocyte Esterase Urine WBC (Auto) Urine RBC (Auto) Urine Bacteria Urine Glucose Exam: Gen: chronically ill and frail appearing in NAD HEENT: MMM CV: RRR, no m/r/g Resp: CTA, no w/c/r Abd: soft, nonTTP Ext: no edema ] Assessment: [73 yo male with metastatic gastric adenocarcinoma with recent progression on 3rd line chemotherapy who presented with acute on chronic weakness with recent c /o constipation after aggressive use of imodium for management of chemotherapy induced diarrhea and now new urinary retention. ] Plan: [1. Acute on chronic weakness - no evidence of acute infection or other focal reversible cause with the exception of recent addition of Reglan which has been held since admission - majority of weakness likely secondary to progressive malignancy and chemotherapy toxicity - pending PT/OT eval 2. Urinary retention - likely due to BPH - no evidence for infection - consider cauda equina as he is also complaining of constipation - the timing of his constipation was after aggressive use of imodium and he has not c/o back pain - plan to start Flomax and rechallenge with a voiding trial in 24-48h - if persistent obstipation will perform MRI of the Lspine] 3. Constipation - cont senna - dulcolax suppository today 4. Metastatic gastric adenocarcinoma - reviewed options for hospice, 4th line therapy or clinical trial at admission - reassess further treatment plans as an outpatient based on his performance status Dispo: cont inpatient care, pending PT/OT. Reassess for dc in 24-48 h
[2019-05-09] MEDS: Enoxaparin(*) 40 MG/0.4 ML SYR SUBCUT SCH (12:54)
[2019-05-09] MEDS ORDERED: Magnesium CITRATE* 300 ML BTL PO ONE (13:08)
[2019-05-09] MEDS: Acetaminophen TAB* 325 MG PO PRN (13:15)
[2019-05-09] MEDS: oxyCODONE TAB* 5 MG TAB PO PRN (17:12)
[2019-05-09] MEDS: Atorvastatin* 40 MG TAB PO SCH (21:04)
[2019-05-09] MEDS: Tamsulosin CAP* 0.4 MG PO SCH (21:04)
[2019-05-10] MEDS: Acetaminophen TAB* 325 MG PO PRN (02:44)
[2019-05-10] MEDS: NS 0.9% 1000 ML** 1,000 ML IV SCH ×2 (05:54→20:54)
[2019-05-10] MEDS: Pantoprazole TAB * 40 MG TAB PO SCH ×2 (08:41→20:56)
[2019-05-10] MEDS: Senna TAB 8.6 mg* TAB PO SCH ×2 (08:41→20:56)
[2019-05-10] MEDS: DULoxetine DR CAP* 20 MG CAP.DR PO SCH (08:41)
[2019-05-10] MEDS: Aspirin EC TAB* 81 MG TAB.EC PO SCH (08:41)
[2019-05-10 10:08] LABS: ABS Lymphocytes 0.6 10^3/ul (1.0-4.8); ABS Neutrophils 2.5 10^3/ul (1.5-7.7); Eosinophil % 1.1 %; Hematocrit 27 % (42-52); Hemoglobin 9.4 g/dL (14.0-18.0); Lymphocyte % 13.8 %; Mean Corpuscular HGB Conc 34 g/dL (31-36); Mean Corpuscular Hemoglobin 34 pg (27-31); Mean Corpuscular Volume 100 fL (80-94); Mean Platelet Volume 6.4 fL (7.4-10.4); Platelet Count 259 10^3/uL (150-450); Red Blood Count 2.75 10^6 /uL (4.18-5.48); Red Cell Distribution Width 18 % (10-15); White Blood Count 4.1 10^3/uL (3.5-10.8)
[2019-05-10 10:24] LABS: Albumin 2.8 g/dL (3.2-5.2); Albumin/Globulin Ratio 1.1 (1-3); Calcium 8.1 mg/dL (8.6-10.3); EGFR African American 197.8 (>60); EGFR Non-African American 163.5 (>60); Globulin 2.5 g/dL (2-4); Potassium 3.6 mmol/L (3.5-5.0); Total Bilirubin 0.6 mg/dL (0.2-1.0); Total Protein 5.3 g/dL (6.4-8.9)
[2019-05-10] MEDS: Fludrocortisone Acetate TAB* 0.1 MG PO SCH (10:49)
--- NOTE | 2019-05-10 11:33 | PN ---
Progress Note - Progress Note Date of Service: 05/10/19 SOAP: Subjective: [Feeling slightly better, a little stronger. Appetite better. He had a BM yesterday. Some abd pain, but improved this morning. ] Objective: [ Vital Signs: Temp Pulse Resp BP Pulse Ox 97.5 F 65 18 153/80 95 05/10/19 03:15 05/10/19 03:15 05/10/19 03:15 05/10/19 03:15 05/10/19 03:15 Acetaminophen (Tylenol Tab*) 650 mg PO Q4H PRN PRN Reason: pain/fever Last Admin: 05/10/19 02:44 Dose: 650 mg Alprazolam (Xanax Tab*) 0.25 mg PO BID PRN PRN Reason: ANXIETY Last Admin: 05/09/19 22:42 Dose: 0.25 mg Aspirin (Aspirin Ec Tab*) 81 mg PO DAILY [facility] Last Admin: 05/10/19 08:41 Dose: 81 mg Atorvastatin Calcium (Lipitor*) 40 mg PO BEDTIME [facility] Last Admin: 05/09/19 21:04 Dose: 40 mg Duloxetine HCl (Cymbalta Cap*) 20 mg PO DAILY [facility] Last Admin: 05/10/19 08:41 Dose: 20 mg Enoxaparin Sodium (Lovenox(*)) 40 mg SUBCUT Q24H [facility] Last Admin: 05/09/19 12:54 Dose: 40 mg Fludrocortisone Acetate (Florinef Tab*) 0.1 mg PO DAILY [facility] Last Admin: 05/10/19 10:49 Dose: Not Given Sodium Chloride (Ns 0.9% 1000 Ml) 1,000 mls @ 75 mls/hr IV PER RATE [facility] Last Admin: 05/10/19 05:54 Dose: 75 mls/hr Lorazepam (Ativan Tab(*)) 0.5 mg PO BEDTIME PRN PRN Reason: ANXIETY Last Admin: 05/09/19 22:43 Dose: 0.5 mg Multi-Ingredient Mouthwash/Gargle (Magic Mouth Was-Dong/Maal/Lido*) 5 ml SWISH SPIT QID PRN PRN Reason: mouth pain Ondansetron HCl (Zofran Tab*) 4 mg PO TID PRN PRN Reason: NAUSEA/VOMITING Last Admin: 05/09/19 22:46 Dose: 4 mg Oxycodone HCl (Roxycodone Tab*) 5 mg PO Q4H PRN PRN Reason: PAIN - MODERATE Last Admin: 05/09/19 17:12 Dose: 5 mg Pantoprazole Sodium (Protonix Tab*) 40 mg PO BID [facility] Last Admin: 05/10/19 08:41 Dose: 40 mg Prochlorperazine (Compazine 10 Mg Tab) 10 mg PO TID PRN PRN Reason: NAUSEA Last Admin: 05/10/19 02:42 Dose: 10 mg Senna (Senokot 8.6 Mg Tab*) 1 tab PO BID [facility] Last Admin: 05/10/19 08:41 Dose: 1 tab Tamsulosin HCl (Flomax Cap*) 0.4 mg PO BEDTIME [facility] Last Admin: 05/09/19 21:04 Dose: 0.4 mg Laboratory Results - last 24 hr 05/10/19 05/10/19 09:53 09:53 WBC 4.1 RBC 2.75 L Hgb 9.4 L Hct 27 L MCV 100 H MCH 34 H MCHC 34 RDW 18 H Plt Count 259 MPV 6.4 L Neut % (Auto) 60.5 Lymph % (Auto) 13.8 [place] % (Auto) 24.1 Eos % (Auto) 1.1 Baso % (Auto) 0.5 Absolute Neuts (auto) 2.5 Absolute Lymphs (auto) 0.6 L Absolute Monos (auto) 1.0 H Absolute Eos (auto) 0.0 Absolute Basos (auto) 0.0 Absolute Nucleated RBC 0.0 Nucleated RBC % 0.0 Sodium 135 Potassium 3.6 Chloride 103 Carbon Dioxide 25 Anion Gap 7 BUN 10 Creatinine 0.50 L Est GFR ( Amer) 197.8 Est GFR (Non-Af Amer) 163.5 BUN/Creatinine Ratio 20.0 Glucose 94 Calcium 8.1 L Total Bilirubin 0.60 AST 11 L ALT 9 Alkaline Phosphatase 77 Total Protein 5.3 L Albumin 2.8 L Globulin 2.5 Albumin/Globulin Ratio 1.1 Exam: Gen: chronically ill and frail appearing in NAD HEENT: MMM CV: RRR, no m/r/g Resp: CTA, no w/c/r Abd: soft, nonTTP Ext: no edema ] Assessment: [73 yo male with metastatic gastric adenocarcinoma with recent progression on 3rd line chemotherapy who presented with acute on chronic weakness with recent c /o constipation after aggressive use of imodium for management of chemotherapy induced diarrhea and now new urinary retention. ] Plan: [1. Acute on chronic weakness: improving, acute exacerbation is likely iatrogenic - no evidence of acute infection or other focal reversible cause with the exception of recent addition of Reglan which has been held since admission - majority of chronic weakness is secondary to progressive malignancy and chemotherapy toxicity 2. Urinary retention - likely due to BPH, started Flomax - no evidence for infection - remove Hinojosa catheter today - if unable to void will replace the Hinojosa and plan MRI of the Lspine 3. Constipation - improved - cont senna 4. Metastatic gastric adenocarcinoma - reviewed options for hospice, 4th line therapy or clinical trial at admission - reassess further treatment plans as an outpatient based on his performance status Dispo: cont inpatient care. Anticipate dc tomorrow if his voiding trial succeeds
[2019-05-10] MEDS: Enoxaparin(*) 40 MG/0.4 ML SYR SUBCUT SCH (15:05)
[2019-05-10] MEDS: Ondansetron TAB* 4 MG PO PRN (15:54)
[2019-05-10] MEDS: ALPRAZolam TAB* 0.5 MG PO PRN (20:55)
[2019-05-10] MEDS: Atorvastatin* 40 MG TAB PO SCH (20:55)
[2019-05-10] MEDS: Tamsulosin CAP* 0.4 MG PO SCH (20:56)
[2019-05-10] MEDS: LORazepam TAB(*) 0.5 MG PO PRN (20:57)
[2019-05-11] MEDS: Pantoprazole TAB * 40 MG TAB PO SCH (08:52)
[2019-05-11] MEDS: Senna TAB 8.6 mg* TAB PO SCH (08:52)
[2019-05-11] MEDS: DULoxetine DR CAP* 20 MG CAP.DR PO SCH (08:52)
[2019-05-11] MEDS: Aspirin EC TAB* 81 MG TAB.EC PO SCH (08:52)
[2019-05-11] MEDS: oxyCODONE TAB* 5 MG TAB PO PRN (08:52)
[2019-05-11] MEDS: Ondansetron TAB* 4 MG PO PRN (08:52)
[2019-05-11] MEDS: Fludrocortisone Acetate TAB* 0.1 MG PO SCH (09:07)
[2019-05-11] MEDS: NS 0.9% 1000 ML** 1,000 ML IV SCH (12:09)
[2019-05-11 12:16] VITALS: BP 136/78
--- NOTE | 2019-05-11 12:30 | DS ---
- Discharge Summary Admission Date: 05/08/19 Discharge Date: 05/11/19 Discharge Diagnosis 1. Weakness and near syncope: 2/2 poor tolerance of Reglan and underlying advanced cancer 2. Constipation: multi-factorial but improved with laxatives 3. Gastric Cancer: recently progressed and decision regarding next therapy pending family decision and patient condition once home Discharge Medications: Medication Instructions Recorded Confirmed Type Atorvastatin* [Lipitor*] 40 mg PO BEDTIME 05/29/12 05/08/19 History ALPRAZolam TAB* [Xanax TAB*] 0.25 mg PO BID PRN 02/22/15 05/08/19 History Aspirin EC TAB* [Ecotrin EC Low 81 mg PO DAILY 08/15/18 05/08/19 History Dose 81 MG*] Ondansetron TAB* [Zofran 4 MG Tab*] 4 mg PO TID PRN 08/15/18 05/08/19 History Acetaminophen TAB* [Tylenol TAB*] 650 mg PO Q4H PRN 05/08/19 05/08/19 History Duloxetine HCl 20 mg PO DAILY 05/08/19 05/08/19 History Fludrocortisone Acetate TAB* 1 tab PO DAILY 05/08/19 05/08/19 History [Florinef TAB*] LORazepam TAB(*) [Ativan 0.5 MG 0.5 mg PO BEDTIME PRN 05/08/19 05/08/19 History TAB (*)] Magic Mouth Was-NANI/MAAL/LIDO* 5 ml SWISH SPIT QID 05/08/19 05/08/19 History Nitroglycerin TAB 0.4 MG* 0.4 mg SL Q5M PRN 05/08/19 05/08/19 History Pantoprazole TAB * [Protonix TAB*] 40 mg PO BID 05/08/19 05/08/19 History Prochlorperazine 10 mg TAB 10 mg PO TID PRN 05/08/19 05/08/19 History [Compazine 10 mg TAB] Docusate CAP* [Colace Cap*] 100 mg PO BID #60 cap 05/11/19 Rx Senna TAB 8.6 mg* [Senokot 8.6 mg 1 tab PO BID tab 05/11/19 Rx TAB*] Tamsulosin CAP* [Flomax CAP*] 0.4 mg PO BEDTIME #30 cap 05/11/19 Rx oxyCODONE TAB* [Roxycodone TAB 5 5 mg PO Q4H PRN #18 tab MDD 6 tabs 05/11/19 Rx mg*] Condition: stable Disposition: home Diet: as tolerated, low residual Activity: as tolerated with walker, fall precautions, consider PT Hospital Course: Please see admission note for full H&P, however, briefly, Mr. Hicks is well known to our service due to his unfortunate diagnosis of advanced gastric cancer. He was seen in the office on 05/06/19 with likely partial bowel obstruction and decision to treat conservatively at home therefore he was given instructions for bowel rest and how/when to progress his diet and initiation of Reglan as a pro-motilic. Additionally, in order to further elucidate his progressive fatigue and constipation, staging scans were ordered. These occurred on 05/07 and showed progressive disease. Mr. Hicks presented to the ER on 05/08 following near syncopal event on the evening of 05/07 and was admitted with presumed medication intolerance. The Reglan was discontinued and he was given hydration and supportive medications. He has been stable since admission. At this time Mr. Rodríguez weakness is felt secondary to his underlying advanced cancer, though likely exacerbated by prior chemotherapy. He did have some urinary retention and has been started on Flomax due to presumed BPH with improved urine output over the last 24 hours. He has been ambulating in his room and his and daughter feel confident they can care for him in at home. At this time Mr. Hicks and his are considering the next steps for his care. They have decided to focus on symptom management over the next two weeks while they consider a clinical trial at [facility], pursuance of third line therapy with Lonsurf, or hospice. His has already initiated contact with the local hospice/palliative care team and they declined further consultation at this time. Mr. Hicks will be discharged home with plan for conservative management of pain and constipation. He will follow-up with Dr. Link on .
[2019-05-11] MEDS: Enoxaparin(*) 40 MG/0.4 ML SYR SUBCUT SCH (15:08)
== END 2019-05-11 15:15 | disposition home or self-care (01) | DRG 312 ==
LOC: ED 06:50 → MED 11:54 → OBSVTOIN 05-09 11:30
PROVIDERS: ADMIT Internal Medicine Hematology & Oncology; ATTEND Internal Medicine Hematology & Oncology
DX: I95.2 Hypotension due to drugs (principal); C16.9 Malignant neoplasm of stomach, unspecified; C77.2 Secondary and unspecified malignant neoplasm of intra-abdominal lymph nodes; C79.72 Secondary malignant neoplasm of left adrenal gland; C79.02 Secondary malignant neoplasm of left kidney and renal pelvis; R53.1 Weakness; T45.0X5A Adverse effect of antiallergic and antiemetic drugs, initial encounter; K59.00 Constipation, unspecified; N40.1 Benign prostatic hyperplasia with lower urinary tract symptoms; R33.8 Other retention of urine; F32.9 Major depressive disorder, single episode, unspecified; F41.9 Anxiety disorder, unspecified; E78.5 Hyperlipidemia, unspecified; Z96.653 Presence of artificial knee joint, bilateral; I10 Essential (primary) hypertension; G47.30 Sleep apnea, unspecified; K21.9 Gastro-esophageal reflux disease without esophagitis; K58.9 Irritable bowel syndrome, unspecified; M15.0 Primary generalized (osteo)arthritis; Y92.9 Unspecified place or not applicable; Z79.82 Long term (current) use of aspirin; Z79.899 Other long term (current) drug therapy; Z92.21 Personal history of antineoplastic chemotherapy; Z95.0 Presence of cardiac pacemaker; Z87.891 Personal history of nicotine dependence; Z88.8 Allergy status to other drugs, medicaments and biological substances; Z95.5 Presence of coronary angioplasty implant and graft
CPT/HCPCS: 0521F; 1036F; 1125F; 36415; 71260; 74019; 74177; 80053; 81003; 81015; 82272; 82607; 82728; 82746; 83540; 83550; 83735; 84443; 84484; 85025; 86140; 87086; 93005; 96361; 96374; 99214; 99220; 99232; 99239; 99284; A9270-GY; G0378; G8427; G9903; J1642; J1650; J2405; Q0164; Q9967